=== PATIENT | male | born 1970 | race Caucasian/White ===

== ENCOUNTER 2019-03-12 23:24 | Emergency (ER) | payer SELFPAY ==
[2019-03-12 23:36] VITALS: BP 115/69; PULSE 97; TEMP 97.8; BMI 24.6
[2019-03-12] MEDS ORDERED: diphenhydrAMINE HCL 50 MG CAPSULE PO ONE (23:37)
[2019-03-12] MEDS ORDERED: predniSONE 20 MG TABLET (UD) PO ONE (23:37)
[2019-03-12] MEDS ORDERED: diphenhydrAMINE HCL 50 MG CAPSULE ONE (23:38)
[2019-03-12] MEDS ORDERED: predniSONE 20 MG TABLET (UD) ONE (23:38)
--- NOTE | 2019-03-12 23:39 | PDOC ---
History of Present Illness - General Chief Complaint: Allergic Reaction Stated Complaint: ALLERGIC REACTION Time Seen by Provider: 03/12/19 23:31 History Source: Patient Exam Limitations: No Limitations - History of Present Illness Initial Comments: 03/12/19 23:39 This is a 48-year-old male brought in by his for evaluation of an ALLERGIC reaction. Patient has had hives all day. Patient went to an urgent care center and was started on a Medrol Dosepak but is still continuing to have symptoms. So came in for evaluation. Patient otherwise denies any shortness of breath, abdominal pain nausea vomiting or diarrhea. Patient denies any new exposures to lotions screams ointments soaps or foods. Patient is not taking any Benadryl or short-acting antihistamines for the symptoms he is only taking the Medrol Dosepak. Allergies: as per nursing notes Past Medical History: none Social history: Lives with family. No smoking. No alcohol. No illicit drugs. Surgical history: None General: No fevers or chills, no weakness, no weight loss HEENT: No change in vision. No sore throat,. No ear pain CardioVascular: no chest discomfort. No shortness of breath Respiratory:No cough, or wheezing. Gastrointestinal: no nausea, vomiting, diarrhea or constipation, No rectal bleeding Genitourinary: No dysuria, hematuria, or frequency Musculoskeletal: No joint or muscle pain or swelling Neurologic: No headache, vertigo, dizziness or loss of consciousness Psychiatric: nor depression Skin: + rashes no easy bruising Endocrine: no increased thirst or abnormal weight change Allergic: no skin or latex allergy All other systems reviewed and normal Exam: General: Well-nourished well-developed individual, no acute distress HEENT: Throat: Normal, tonsils normal, no erythema or exudate Neck: Supple, no meningeal signs, no lymphadenopathy Eyes::Pupils equal reactive and round, extraocular motion intact Chest: Nontender to palpation Cardiac: S1-S2 normal, regular rate and rhythm, no murmurs rubs or gallops Respiratory: Lungs clear to auscultation bilateral Abdomen: Soft, nondistended, normal bowel sounds, there is no tenderness on palpation diffusely Extremities: Warm, dry, no cyanosis, clubbing, or edema Skin: Patient has hives of his extremities and trunk Neuro: Alert and oriented x3, CN II - XII intact, nonfocal exam with normal strength, normal sensation, normal reflexes, normal gait, Psych: Normal mood and affect Assessment and plan: This is a 48-year-old male who comes in complaining of hives times one day. Patient went to an urgent care center and started on a Medrol Dosepak. Patient said his symptoms are not improving however he is not taking anything else. Patient given 50 mg of Benadryl 40 mg of prednisone and we 'll give him a short prednisone burst and then he will continue the Medrol Dosepak. Addition to that I told him to continue to take Benadryl one tablet every 4 hours Past History - Past Medical History Allergies/Adverse Reactions: Allergies Allergy/AdvReac Type Severity Reaction Status Date / Time No Known Allergies Allergy Verified 03/12/19 23:25 Home Medications: Ambulatory Orders Prednisone [Deltasone] 40 mg PO DAILY #8 tablet 03/12/19 *DC/Admit/Observation/Transfer Diagnosis at time of Disposition: Hives - Discharge Dispostion Disposition: HOME Condition at time of disposition: Stable Decision to Admit order: No - Referrals - Patient Instructions Additional Instructions: Take Benadryl one tablet as often as every 4 hours during the day you can take a Claritin or Shiela as it is nondrowsy You get your prescription filled for the prednisone and take 2 tablets a day for 4 days and then restart the Medrol Dosepak he still have any symptoms. Return to the emergency department immediately with ANY new, persistent or worsening symptoms. Continue any medications as previously prescribed by your physician. You should follow up with your primary doctor as soon as possible regarding today's emergency department visit. . Please make sure your doctor reviews the results of your emergency evaluation. Thank you for coming to the Emergency Department today for your care. It was a pleasure to see you today. Please note that your evaluation is INCOMPLETE until you follow-up with your doctor. - Post Discharge Activity
== END 2019-03-12 23:53 | disposition home or self-care (01) ==
LOC: FER 23:24
DX: L50.9 Urticaria, unspecified (principal)
CPT/HCPCS: 99281-25